=== PATIENT | female | born 1965 | race African-American/Black ===

== ENCOUNTER 2017-08-17 17:08 | Emergency (ER) | payer SELFPAY ==
[~2017-08-17] VITALS: Ht 165.1 cm; Wt 115.0 kg
[2017-08-17 17:12] VITALS: BP 135/66; PULSE 96; RESP 16; TEMP 99.2; O2SAT 100
[2017-08-17] MEDS ORDERED: CYCLOBENZAPRINE HCL 10 MG TAB PO ONE (17:30)
[2017-08-17] MEDS ORDERED: ACETAMINOPHEN/HYDROcodone 325 MG/5 MG TAB PO ONE (17:30)
[2017-08-17] MEDS ORDERED: NORC5TAB PO (17:36)
[2017-08-17] MEDS ORDERED: CYCL10TA PO (17:36)
--- NOTE | 2017-08-17 17:37 | PD ---
HPI . Fall Chief Complaint: Injury Time Seen by Provider: 17:20 Travel History International Travel<30 days: No Contact w/Intl Traveler<30days: No Traveled to known affect area: No History of Present Illness HPI Patient presents to us via [facility] or evaluation following a slip and fall. She states that the floor was wet with mop water. She states that she did the splits. EVAC was called because she was unable to get up. She is complaining with pain in her right posterior thigh. Pain is rated 8/10. Pain is exacerbated by movement and palpation. It was treated with ice per EMS prior to arrival. States that the ice has helped. [facility] Past Medical History Arthritis: Yes Hypertension: Yes ?: Not Past Surgical History Surgical History: No Previous Surgery Social History Alcohol Use: No Tobacco Use: No Substance Use: No Allergies-Medications (Allergen,Severity, Reaction): Coded Allergies: Penicillins (Verified Allergy, Unknown, 08/17/17) Reported Meds & Prescriptions Reported Meds & Active Scripts Active Active Prescriptions or Reported Medications Unobtainable Review of Systems Except as stated in HPI: all other systems reviewed are Neg Physical Exam Narrative GENERAL: Awake and alert and in no acute distress. SKIN: Warm and dry. HEAD: Normocephalic/atraumatic. EYES: Pupils are equal. Extraocular movements are intact. NECK: Normal range of motion. CARDIOVASCULAR: Regular rate and rhythm. RESPIRATORY: Nonlabored respirations. MUSCULOSKELETAL: Tenderness in the right hamstring. I do not feel a defect in the muscle. There is no bruising or swelling. Distally neurovascularly intact. NEUROLOGICAL: Nonfocal. PSYCHIATRIC: Appropriate mood and affect. Data Data Last Documented VS Vital Signs Date Time Temp Pulse Resp B/P (MAP) Pulse Ox O2 Delivery O2 Flow Rate FiO2 08/17/17 17:12 99.2 96 16 135/66 (89) 100 Orders Orders Acetamin-Hydrocod 325-5 Mg (Pomerene 5-325 (08/17/17 17:30) Cyclobenzaprine (Flexeril) (08/17/17 17:30) MDM Medical Decision Making Medical Screen Exam Complete: Yes Emergency Medical Condition: Yes Differential Diagnosis Differential diagnosis of extremity trauma includes but is not limited to fracture, sprain or strain, dislocation, contusion Narrative Course This patient presents complaining with right posterior thigh pain after inadvertently doing the splits on a wet floor. Her physical exam is compatible with a muscle strain. She will be discharged with prescriptions for Pomerene and Flexeril. Crutches if needed. Diagnosis Primary Impression: Right hamstring muscle strain Qualified Codes: S76.311A - Strain of muscle, fascia and tendon of the posterior muscle group at thigh level, right thigh, initial encounter Patient Instructions: General Instructions, Muscle Strain (DC) Med/Other Pt SpecificInfo: Prescription(s) given Scripts Cyclobenzaprine (Flexeril) 10 Mg Tab 10 MG PO TID for Muscle Spasm, #15 TAB 0 Refills Prov: Keely Sorenson MD 08/17/17 Hydrocodone-Acetaminophen (Pomerene) 5 Mg-325 Mg Tab 1 TAB PO Q4H Y for PAIN, #12 TAB 0 Refills Prov: Keely Sorenson MD 08/17/17 Disposition: 01 DISCHARGE HOME Condition: Stable Keely Sorenson MD Aug 17, 2017 17:37
== END 2017-08-17 18:09 | disposition home or self-care (01) ==
LOC: NEPD 17:08
DX: S76.311A Strain of muscle, fascia and tendon of the posterior muscle group at thigh level, right thigh, initial encounter (principal); W01.0XXA Fall on same level from slipping, tripping and stumbling without subsequent striking against object, initial encounter
CPT/HCPCS: 99284